=== PATIENT | female | born 1945 | race Caucasian/White ===

== ENCOUNTER 2016-08-22 20:52 | Emergency (ER) | payer OTHER ==
--- NOTE | 2016-08-22 22:05 | RAD ---
Name: LILLY MCGHEE Exam: Right wrist Comparison: None Clinical history: Trauma. Initial encounter. Right wrist pain. Findings: 3 views right wrist are submitted. Bone density is within normal limits. There is a comminuted impacted intra-articular fracture of the distal right radius. Mild impaction is present. There is a subtle nondisplaced ulnar styloid fracture. Soft tissue swelling of the right wrist and distal forearm is identified. Impression: 1. Acute comminuted impacted intra-articular fracture distal right radius 2. Acute nondisplaced transverse fracture through the right ulnar styloid
[2016-08-22] MEDS ORDERED: HYDROCODONE/ACETAMINOPHEN 5/325MG TABLET ONE (23:01)
== END 2016-08-23 00:55 | disposition home or self-care (01) ==
LOC: ED 20:52
DX: S52.501A Unspecified fracture of the lower end of right radius, initial encounter for closed fracture (principal); E07.9 Disorder of thyroid, unspecified; W18.30XA Fall on same level, unspecified, initial encounter; Y93.01 Activity, walking, marching and hiking
CPT/HCPCS: 73110; 99283 ×2; 29105; A9270

== ENCOUNTER 2016-09-10 10:06 | Day surgery (SDC) | payer MEDICARE, OTHER ==
--- NOTE | 2016-09-08 08:50 | HP ---
DATE OF CLINIC: 09/02/16 ALAINA MONTEJO : 1945 PLANNED PROCEDURE: Right Wrist Distal Radius Open Reduction Internal Fixation DATE OF SURGERY: September 10, 2016 SURGEON: Chris Arango M.D. PCP: William Fernandes MD REFERRED HERE [facility] HISTORY OF PRESENT ILLNESS Alaina Montejo is a 70 year old female. * Medication list reviewed with patient allergy list reviewed with patient. * Has not tried NSAIDS. Patient is being seen today as a new patient, referred by the emergency room, for a right distal radius fracture. This fracture occurred after a fall on an outstretched right arm, falling forward on 08/22/2016. This fall occurred at home. Patient was seen in the emergency department and x-rays were obtained, confirming an impacted right distal radius fracture. Patient was placed into an Ortho-glass splint and MOISÉS wrap. Patient reports today that she continues to have pain at the right wrist. She is not happy with the splint placed by the emergency department. She has remained active, despite her injury. She has discontinued the sling and is using her arm in a down position as needed. CURRENT MEDICATION * Fontanelle Thyroid 90 MG Tablet 1 once a day 30 days, 0 refills * Hydrocodone-Acetaminophen 7.5-325 MG Tablet as needed 2 days, 0 refills * Levothyroxine Sodium 112 MCG Tablet 1 once a day 30 days, 0 refills * Morphine Sulfate 15 MG Tablet as needed 2 days, 0 refills PAST MEDICAL/SURGICAL HISTORY Reported: Medical: Bladder disease, renal history, and Thyroid Disorder. Surgical / Procedural: Prior surgery Shoulder-1989 Bladder Sling-2010 Intestinal-1964. Surgical: * Hysterectomy 1988 SOCIAL HISTORY Social history changed. Behavioral: No tobacco use, not a current smoker, and not chewing tobacco. Never smoked. Smoking status: Never smoker. Alcohol: No consumption of alcohol. Drug Use: Not using drugs. Work: Occupation Educator-Admin. ALLERGIES * Monosodium Glutamate No reaction to anesthetics. FAMILY HISTORY 1 children living Family medical history Mother: Heart Disease, OA, Blood Clots, HBP, Depression Father: Heart Disease, Stroke, HBP, Depression REVIEW OF SYSTEMS No recent constitutional symptoms to include fevers and chills. No cardiovascular symptoms to include chest pain or palpitations. No respiratory symptoms to include shortness of breath or recent infections. PHYSICAL FINDINGS * Vitals taken 09/02/2016 02:15 pm BP-Sitting L 156/89 mmHg Pulse Rate-Sitting 81 bpm Temp-Oral 98.4 F Height 62.5 in Weight 114 lbs Body Mass Index 20.5 kg/m2 Body Surface Area 1.51 m2 Pain Level 7 Ears, Nose, Throat: * ENT: normal. Lungs: * Clear to auscultation. Cardiovascular: Heart Rate And Rhythm: * Normal. Abdomen: * Normal. Neurological: Motor: * Dominant Hand = Right Hand. GENERAL: Patient is alert and oriented and in no acute distress. She ambulates in on her own with an Ortho-glass splint and MOISÉS wrap in place. RIGHT UPPER EXTREMITY: Splint was left in place for today's exam, due to an unstable distal radius fracture. Fingers are free. Sensation is intact throughout all fingers and thumb. Fingers are pink. Patient is able to actively make a fist in the splint and is able to extend the fingers fully straight. Patient is also able to move the elbow and is non-tender. Limitations are because of the splint. IMAGING X-rays from 08/22/2016 were reviewed, showing a distal radius intraarticular fracture with impaction. Repeat x-rays from today, 09/02/2016, of right wrist in splint, shows a worsening dorsal-angulated distal radius fracture, in comparison to her initial x-rays from 08/22/2016. Please refer to radiologic report for further details. TESTS * Test: CBC NO DIFF Report Date: 09/02/2016 WBC 4.9 10*3/mL MCV 92.1 fL RBC 4.80 10*6/uL MCH 30.8 pg MCHC 33.5 g/dL RDW 11.8 % PLATELET COUNT 205 10*3/mL HCT 44.2 % HGB 14.8 g/L * Test: COMPREHENSIVE METABOLIC PANEL Report Date: 09/02/2016 ALT/SGPT 36 U/L ALBUMIN 4.1 g/dL ALB/GLOB RATIO 1.3 BUN 16 mg/dL BUN/CREAT RATIO 32 High CALCIUM 9.8 mg/dL GLUCOSE 100 mg/dL CREATININE 0.5 mg/dL Low SODIUM 141 meq/L POTASSIUM 3.7 meq/L CHLORIDE 105 meq/L CARBON DIOXIDE 29 meq/L ANION GAP 11 meq/L TOT PROTEIN 7.3 g/dL GLOBULIN 3.2 g/dL BILI,TOTAL 0.3 mg/dL AST/SGOT 32 U/L ALK PHOSPHATASE 81 U/L GFR 123 High ASSESSMENT * Intra-articular fracture of distal end of radius Right distal radius fracture, with impaction and dorsal tilt, intraarticular, [id number] 08/22/2016 THERAPY * Patient fall risk screen positive has fallen within 6 months. * Patient eligible for fall risk assessment. * Patient received fall risk assessment. PLAN * Pain in right wrist Radiology/X-ray: Wrist Routine Right X-ray [id number] * Oth intartic fracture of lower end of right radius, init Percocet 5-325 MG TABS, 1 every 4 - 6 hours as needed, 14 days, 0 refills * Open treatment of fracture of distal radius -right ORIF Patient is currently eleven-days post injury. Her x-rays were reviewed with her today. My recommendation is surgical fixation with distal radius volar plate, open reduction internal fixation. I have consulted Dr. Arango and he is in agreement with my recommendation. Plan is to proceed with surgery next week. Dr. Arango did meet with the patient today and explained the procedure, risks and benefits, to her. She will plan to have splinting postoperatively and is expected to possibly have hand therapy initiated at two-weeks post-op. CARE TEAM William Fernandes MD Family Practice SURGICAL CONSENT We have discussed surgical options including right wrist distal radius fracture ORIF and nonoperative management. The patient was counseled in detail regarding the diagnosis, treatment options available, prognosis of each treatment option and the potential risks and complications. The risks of surgery include, but are not limited to, anesthetic , neurovascular complications, pulmonary embolism, deep vein thrombosis, wound dehiscence, failure of any or all of the discussed procedures, infection of the joint or surrounding soft tissue, need for revision surgery, chronic pain, limitations in activities of daily living, inability to return to work, and loss of normal range of motion or functional use of the extremity. There is the possibility of failure over time that may require additional operative or nonoperative treatment. The patient acknowledged that there are a number of perioperative risks not mentioned here and would still like to proceed. The patient is aware of and understands these risks, and wishes to proceed with the proposed surgical procedure and other procedures as indicated at the time of surgery. We will have the patient see their PCP for a preoperative medical risk assessment. The preoperative instructions were reviewed with the patient and all questions were answered.
[2016-09-10] MEDS ORDERED: CEFAZOLIN SODIUM 2 GRAM PREMIX 100 ML IV PRN (10:15)
[2016-09-10] MEDS ORDERED: LACTATED RINGERS 1,000 ML ONE (10:15)
[2016-09-10] MEDS ORDERED: IV START KIT ONE (10:15)
[2016-09-10] MEDS ORDERED: FENTANYL 5 ML ONE (12:53)
[2016-09-10] MEDS ORDERED: MIDAZOLAM HCL 5 MG/5 ML VIAL ONE (12:53)
[2016-09-10] MEDS ORDERED: LIDOCAINE 2% (PRES FREE) 5 ML VIAL ONE (12:55)
[2016-09-10] MEDS ORDERED: ROPIVACAINE 0.5% 30 ML VIAL ONE (13:00)
[2016-09-10] MEDS ORDERED: PROPOFOL 40 ML IV ONE (13:43)
[2016-09-10] MEDS ORDERED: NALOXONE HCL 0.4 MG/ML VIAL IV PRN (13:54)
[2016-09-10] MEDS ORDERED: ATROPINE SULFATE 0.4 MG/1 ML VIAL IV PRN (13:54)
[2016-09-10] MEDS ORDERED: PROMETHAZINE HCL 25 MG/ML VIAL IM PRN (13:54)
[2016-09-10] MEDS ORDERED: ONDANSETRON 4 MG/2ML 2 ML VIAL IV PRN ×2 (13:54→15:21)
[2016-09-10] MEDS ORDERED: DEXAMETHASONE SOD PHOS 4 MG/1 ML VIAL ONE ×2 (13:54→13:56)
[2016-09-10] MEDS ORDERED: HYDROMORPHONE HCL 1 MG/ML SYRINGE IV PRN ×2 (13:54→15:21)
[2016-09-10] MEDS ORDERED: FENTANYL 100 MCG/2 ML VIAL IV PRN (13:54)
[2016-09-10] MEDS ORDERED: KETAMINE HCL UD SYRINGE 100 MG/2 ML IV ONE (13:56)
[2016-09-10] MEDS ORDERED: LACTATED RINGERS 1,000 ML IV SCH ×2 (14:00→15:21)
--- NOTE | 2016-09-10 14:56 | PCMBPN ---
Brief Post Op Note: Date of Procedure: 09/10/16 Start Time: 1400 Preoperative Diagnosis: 1. right distal radius fracture Postoperative Diagnosis: 1. Same Procedure: right distal radius ORIF Surgeon: Chris Arango MD Assist: Aniceto Spear PA-C Anesthesia: Damian Do Findings: as above Condition: stable to PACU Complications: none IV Fluids: 1000 mLs of LR Urine Output: 0 mLs Estimated Blood Loss: 5 mLs Tourniquet Time: 47 min at 250 mm Hg Specimens: none Implants: Synthes 3-hole distal radius plate with locking screws distally and cortical and locking screws proximally Drains: none Chris Arango MD
--- NOTE | 2016-09-10 15:03 | RAD ---
WRIST RIGHT 2 VIEWS HISTORY: Intraoperative fluoroscopy right wrist ORIF. COMPARISONS: Plain films dating back to 08/22/2016 FINDINGS: 2 overhead fluoroscopic images demonstrate volar sideplate with screw fixation across the patient's previously seen and described distal right wrist fracture. Study is limited with respect to osseous detail given the fluoroscopic technique. Fluoroscopy time: 41 seconds. IMPRESSION: Intraoperative fluoroscopy as above. Please see orthopedist note regarding the procedure for further details.
[2016-09-10] MEDS ORDERED: ACETAMINOPHEN 325 MG TABLET PO PRN (15:21)
[2016-09-10] MEDS ORDERED: DIPHENHYDRAMINE HCL 50 MG/1 ML VIAL IV PRN (15:21)
[2016-09-10] MEDS ORDERED: OXYCODONE HCL 5 MG TABLET PO PRN (15:21)
--- NOTE | 2016-09-10 15:55 | RAD ---
HISTORY: Postop ORIF. COMPARISON: Films dating back to 08/22/2016 TECHNIQUE: two view. Wrist Laterality:right FINDINGS: Bones: Postoperative changes with volar sideplate and screw fixation. Hardware is intact without signs of failure or loosening. Fracture plane is still well visualized. No new fracture or dislocation. Joints: Normal Soft tissue: Soft tissue swelling is present. Overlying bandaging does limit assessment. IMPRESSION: Satisfactory postoperative exam.
--- NOTE | 2016-09-11 10:39 | OP ---
LILLY MCGHEE : 1945 [id number] DATE OF SERVICE: September 10, 2016 PREOPERATIVE DIAGNOSIS: Right distal radius fracture. POSTOPERATIVE DIAGNOSIS: Right distal radius fracture. PROCEDURE PERFORMED: RIGHT DISTAL RADIUS OPEN REDUCTION INTERNAL FIXATION. SURGEON: Chris Arango M.D. NUT PACKER: Aniceto Spear P.A.-C. ANESTHESIA: Karan WinstonNRex SPECIMENS: No material was sent to the laboratory. ESTIMATED BLOOD LOSS: 5 mL FLUIDS REPLACED: 1,000 mL of crystalloid TOURNIQUET TIME: 47 minutes at 250 mmHg. IMPLANTS: Synthes 3 hole distal radius plate with locking screws distally and cortical unlocking screws proximally. INDICATIONS: This is a 70-year-old right-hand dominant female who sustained a distal radius fracture and a fall. Physical exam and radiographic findings were consistent with the above. For additional details see the H&P. DESCRIPTION OF PROCEDURE: The patient was identified in the pre-operative holding area where she was marked with an indelible marker by the operating surgeon. She had a regional block placed and then was taken to the operating room where she succumbed to general anesthesia. Perioperative antibiotics were administered. A well padded pre-calibrated nonsterile tourniquet was placed on the right upper arm. She was prepped and draped the usual sterile fashion for surgery. An operative time out was performed and confirmed by all members of the operative team. Her arm was elevated and exsanguinated using the Esmarch bandage and tourniquet was inflated to 250 mmHg. A longitudinal incision was made over the flexor carpi radialis tendon in the right arm. This was retracted radially protecting the neurovascular structures. Dissection was carried through floor of the FCR tendon sheath. A subperiosteal peel of the pronator was performed and the distal radius was exposed. A provisional reduction was obtained and the AP and lateral projections were obtained which demonstrated appropriate reduction parameters. A three hole distal radius plate was brought onto the field, and pinned in place with a kickstand applied to the proximal portion of the plate. Locking screws were placed distally and then the plate was brought down to the diaphyseal radius proximally restoring appropriate reduction parameters. Three cortical screws were placed proximally applying the final fixation to the fracture. The wound was copiously irrigated with sterile saline and closed in layers. A sterile dressing of Xeroform, fluffs, web roll and a volar split was applied and held in place with an MOISÉS bandage. The tourniquet was deflated and drapes were removed. The patient was awakened from her anesthesia, extubated in the operating room and transferred to a stretcher and taken postoperative to the postanesthesia care unit in stable condition. There were no observed intraoperative complications during this procedure. Job [id number] Cc: [facility]
== END 2016-09-10 16:15 | disposition home or self-care (01) ==
LOC: SDC 10:06
PROVIDERS: ATTEND Orthopaedic Surgery
PROC: 0PSH04Z Reposition Right Radius with Internal Fixation Device, Open Approach (ICD-10-PCS; principal; 2016-09-10)
DX: S52.571A Other intraarticular fracture of lower end of right radius, initial encounter for closed fracture (principal); E07.9 Disorder of thyroid, unspecified; W19.XXXA Unspecified fall, initial encounter; Y92.009 Unspecified place in unspecified non-institutional (private) residence as the place of occurrence of the external cause
CPT/HCPCS: 25608; 76000; 73100 ×2; J3010; J1100 ×2; J2795; J2250; J7120